=== PATIENT | female | born 1990 | race Caucasian/White ===

== ENCOUNTER → 2019-08-02 | Outpatient (REF) | payer OTHER | LOC: M SFHCLERA 10:18 | PROVIDERS: ATTEND Nurse Practitioner Family | DX: R53.81 Other malaise (principal) ==

== ENCOUNTER 2020-07-06 17:38 | Emergency (ER) | payer OTHER ==
[~2020-07-06] VITALS: Ht 170.2 cm; Wt 73.4 kg
[2020-07-06] MEDS ORDERED: SPIR100T3 PO (17:52)
[2020-07-06] MEDS ORDERED: PANT40TA29 PO (17:52)
[2020-07-06] MEDS ORDERED: NS 1,000 ML IV ONE (18:00)
[2020-07-06] MEDS ORDERED: GI COCKTAIL 50ML BTL(HYOSCYAMINE/MAALOX/LIDOCAINE VISCOUS)(1:3:1) PO ONE (18:00)
[2020-07-06] MEDS ORDERED: METOCLOPRAMIDE INJ 10MG/2ML VIAL (J2765 PER 1) IV ONE (18:00)
[2020-07-06 18:13] LABS: BASO % 0.4 % (0.0-1.0); EOS # 0.2 10^3/uL (0.0-0.5); HEMATOCRIT 44.9 % (36.0-47.0); HEMOGLOBIN 14.5 g/dl (12.0-15.5); LYMPH # 2.1 10^3/uL (1.5-5.0); LYMPH % 27.6 % (24.0-44.0); MEAN CORPUSCULAR HEMOGLOBIN 30.3 pg (27.0-33.0); MEAN CORPUSCULAR HGB CONC 32.3 g/dl (32.0-36.5); MEAN CORPUSCULAR VOLUME 93.9 fl (80.0-96.0); MONO # 0.7 10^3/uL (0.0-0.8); MONO % 8.9 % (0.0-5.0); NEUTROPHILS # 4.6 10^3/uL (1.5-8.5); NEUTROPHILS % 60.7 % (36.0-66.0); PLATELET COUNT, AUTOMATED 288 10^3/uL (150-450); RED BLOOD COUNT 4.78 10^6/uL (4.00-5.40); WHITE BLOOD COUNT 7.5 10^3/uL (4.0-10.0)
[2020-07-06 18:45] LABS: ALBUMIN 4.2 GM/DL (3.2-5.2); BILIRUBIN,DIRECT 0.1 MG/DL (0.0-0.2); BILIRUBIN,TOTAL 0.4 MG/DL (0.2-1.0); TOTAL PROTEIN 7.8 GM/DL (6.4-8.2)
[2020-07-06] MEDS ORDERED: CARA1TAB6 PO (20:39)
[2020-07-06] MEDS ORDERED: REGL10TA6 PO (20:39)
[2020-07-06 20:52] VITALS: BP 127/82
== END 2020-07-06 20:55 | disposition home or self-care (01) ==
LOC: M ED 17:38
DX: K21.9 Gastro-esophageal reflux disease without esophagitis (principal); F32.9 Major depressive disorder, single episode, unspecified; F41.9 Anxiety disorder, unspecified; K59.00 Constipation, unspecified; Z88.1 Allergy status to other antibiotic agents; Z88.2 Allergy status to sulfonamides; Z88.8 Allergy status to other drugs, medicaments and biological substances
CPT/HCPCS: 80047; 80076; 81001; 83690; 84702; 85025; 96361; 96374; 99284; J2765

== ENCOUNTER 2020-12-16 12:45 | Emergency (ER) | payer OTHER ==
[~2020-12-16] VITALS: Ht 170.2 cm; Wt 68.2 kg
[~2020-12-16 12:45] MED LIST: CARA1TAB6 PO; PANT40TA29 PO; REGL10TA6 PO; SPIR100T3 PO
[2020-12-16] MEDS ORDERED: EFFE37.5 PO (13:17)
[2020-12-16] MEDS ORDERED: EFFE75CA2 PO (13:17)
[2020-12-16] MEDS ORDERED: SPIR50TA4 PO (13:17)
[2020-12-16 15:41] LABS: HCG, SERUM QUALITATIVE NEGATIVE (NEGATIVE)
[2020-12-16 17:00] VITALS: BP 118/70
--- NOTE | 2020-12-16 22:37 | ECGEPIP ---
[facility] - ED Test Date: 2020-12-16 Pat Name: SADA RYDER Department: Room: - Gender: Female Medical Leader: : 1990 Requested By: Sada Barnett Order Number: [id number] Reading MD: Marco Graham Measurements Intervals [place] Rate: 71 P: 14 WA: 126 QRS: 2 QRSD: 78 T: 3 QT: 406 QTc: 441 Interpretive Statements Normal sinus rhythm with sinus arrhythmia Minimal voltage criteria for LVH, may be normal variant ( R in aVL ) Baseline artifact Comparison tracing not on file Electronically Signed on 12-16-2020 22:37:27 EDT by Marco Graham
== END 2020-12-16 17:18 | disposition home or self-care (01) ==
LOC: EDBD 12:45 → M ED 12:45
DX: R55 Syncope and collapse (principal); E78.9 Disorder of lipoprotein metabolism, unspecified; Z79.899 Other long term (current) drug therapy; Z88.2 Allergy status to sulfonamides; Z88.8 Allergy status to other drugs, medicaments and biological substances